=== PATIENT | female | born 1940 | race Caucasian/White ===

== ENCOUNTER → 2017-07-23 | Outpatient (CLI) | payer MEDICARE, OTHER ==
[~2017-07-23] VITALS: Ht 154.9 cm; Wt 61.2 kg
== END | disposition home or self-care (01) ==
LOC: Rad HDHVI 08:21
PROVIDERS: ATTEND Internal Medicine Cardiovascular Disease
DX: I10 Essential (primary) hypertension (principal); E78.00 Pure hypercholesterolemia, unspecified; I42.9 Cardiomyopathy, unspecified; I51.4 Myocarditis, unspecified
CPT/HCPCS: 78452; 93017; 93306; 93926; 96374; A9500

== ENCOUNTER → 2018-05-06 | Outpatient (CLI) | payer MEDICARE, OTHER | END | disposition home or self-care (01) | LOC: Rad HDHVI 12:55 | PROVIDERS: ATTEND Internal Medicine Cardiovascular Disease | DX: I70.0 Atherosclerosis of aorta (principal); E78.5 Hyperlipidemia, unspecified; I12.0 Hypertensive chronic kidney disease with stage 5 chronic kidney disease or end stage renal disease; N18.6 End stage renal disease | CPT/HCPCS: 93306 ==

== ENCOUNTER → 2018-05-15 | Outpatient (CLI) | payer OTHER ==
[~2018-05-15] VITALS: Ht 152.4 cm; Wt 60.3 kg
== END | disposition home or self-care (01) ==
LOC: Rad HDHVI 13:31
PROVIDERS: ATTEND Internal Medicine Cardiovascular Disease
DX: I12.0 Hypertensive chronic kidney disease with stage 5 chronic kidney disease or end stage renal disease (principal); E11.22 Type 2 diabetes mellitus with diabetic chronic kidney disease; N18.6 End stage renal disease; E78.5 Hyperlipidemia, unspecified
CPT/HCPCS: 78452; 93017; 96374; A9500

== ENCOUNTER → 2018-07-08 | Outpatient (CLI) | payer OTHER ==
[~2018-07-08] VITALS: Ht 30.5 cm; Wt 0.5 kg
[~2018-07-08] MED LIST: ALPR0.5T PO; ATO40T PO; CAND8TAB PO; CHOL50007 PO; CLON0.2D6 PO; DEXL60CA3 PO; DOXA2TAB PO; FEBU80TA PO; FURO40TA PO; LISI-646 PO; LISINOPRIL 10 MG TAB ONE; LISINOPRIL 20 MG TAB PO ONE; LOTE0.5S EACHEYE; cloNIDine HCL 0.1 MG TAB ONE; cloNIDine HCL 0.1 MG TAB PO ONE
[2018-07-08 13:00] VITALS: BP 212/79
[2018-07-08 15:20] VITALS: BP 169/65
== END | disposition home or self-care (01) ==
LOC: Rad HDHVI 13:05
PROVIDERS: ATTEND Internal Medicine
DX: M79.606 Pain in leg, unspecified (principal); I12.9 Hypertensive chronic kidney disease with stage 1 through stage 4 chronic kidney disease, or unspecified chronic kidney disease; N18.9 Chronic kidney disease, unspecified
CPT/HCPCS: 93971; G0463

== ENCOUNTER 2018-07-27 05:33 | Inpatient (IN) | payer OTHER ==
[~2018-07-27] VITALS: Ht 152.4 cm; Wt 67.2 kg
[2018-07-27] MEDS ORDERED: cloNIDine 0.2 mg/24hr 7DAY PATCH TD ONE (06:00)
[2018-07-27] MEDS ORDERED: cloNIDine HCL 0.1 MG TAB PO ONE ×2 (06:15→08:45)
[2018-07-27 06:37] LABS: Basophils # (auto) 0.1 uL; Basophils % (auto) 0.8 % (0.0-2.0); Eosinophils # (auto) 0.4 uL; Eosinophils % (auto) 4.6 % (0.0-7.0); Hemoglobin 11.7 g/dL (12.2-16.2); Lymphocytes # (auto) 1.2 uL; Lymphocytes % (auto) 13.1 % (10.0-50.0); Mean Corpuscular Hemoglobin 30.2 pg (28.0-32.0); Mean Corpuscular Hgb Conc. 33.5 g/dL (32.0-36.0); Mean Corpuscular Volume 90.1 fL (80.0-100.0); Monocytes # (auto) 0.6 uL; Monocytes % (auto) 6.8 % (0.0-12.0); Neutrophils # (auto) 6.9 uL; Neutrophils % (auto) 74.7 % (37.0-80.0); Platelet Count (auto) 215 10^3/uL (140-450); Red Blood Cells 3.89 10^6/uL (4.0-5.20); White Blood Cell 9.3 10^3/uL (4.4-10.8)
[2018-07-27 06:55] LABS: INR 0.96 (0.9-1.15); Partial Thromboplastin Time 24.7 sec (23.78-33.04); Prothrombin Time 10.3 sec (9.27-12.13)
[2018-07-27 06:57] LABS: Albumin 2.8 g/dL (3.4-5.0); Bilirubin, Total 0.2 mg/dL (0.2-1.0); Calcium 8.8 mg/dL (8.5-10.1); Magnesium 1.7 mg/dL (1.6-2.6); Potassium 3.6 mmol/L (3.5-5.1); Total Protein 5.9 g/dL (6.4-8.2)
[2018-07-27] MEDS ORDERED: SODIUM CHLORIDE 0.9% 1,000 ML IV ONE (08:17)
[2018-07-27] MEDS ORDERED: PROMETHAZINE HCL 25 MG/ML 1ML IV PRN (08:30)
[2018-07-27] MEDS ORDERED: MORPHINE SULFATE 4 MG/ML SYR/VIAL IV ONE (08:30)
[2018-07-27] MEDS ORDERED: ACETAMINOPHEN 500 MG TAB PO ONE (08:45)
[2018-07-27] MEDS ORDERED: LABETALOL HCL 5 MG/ML ML 20ML VIAL IV ONE (08:45)
[2018-07-27 09:03] LABS: Urine Bacteria FEW /hpf (None Seen); Urine Blood TRACE /uL (Negative); Urine Specific Gravity 1.004 (1.001-1.035); Urine WBC <1 /hpf (0 - 5)
[2018-07-27] MEDS ORDERED: hydrALAZINE HCL 20 MG/ML VL IV ONE (10:15)
[2018-07-27] MEDS ORDERED: NITROGLYCERIN 0.4 MG SL TAB SL PRN (11:00)
[2018-07-27] MEDS ORDERED: SODIUM CHLORIDE 0.9% 1,000 ML IV SCH (11:00)
[2018-07-27] MEDS ORDERED: OXYCODONE W/ ACETAMINOPHEN 5/325MG TABLET PO PRN (11:00)
[2018-07-27] MEDS ORDERED: MORPHINE SULF INJ 2 MG/ML SYRINGE 1ML IV PRN (11:00)
[2018-07-27] MEDS ORDERED: ISOSORBIDE DINITRATE 10 MG TAB PO SCH ×2 (12:00→18:00)
[2018-07-27] MEDS ORDERED: cloNIDine HCL 0.1 MG TAB PO PRN (13:30)
[2018-07-27] MEDS ORDERED: SODIUM CHLORIDE 0.9% 500 ML IV ONE (13:45)
[2018-07-27] MEDS ORDERED: cloNIDine HCL 0.1 MG TAB PO SCH (14:00)
[2018-07-27] MEDS ORDERED: hydrALAZINE HCL 25 MG TAB PO SCH ×3 (14:00)
[2018-07-27] MEDS ORDERED: FUROSEMIDE 100 MG/10ML VIAL IV ONE (14:00)
[2018-07-27] MEDS: ISOSORBIDE DINITRATE 10 MG TAB PO SCH (17:37)
[2018-07-27 21:40] VITALS: BP 122/73
[2018-07-27] MEDS: hydrALAZINE HCL 25 MG TAB PO SCH (21:57)
[2018-07-27] MEDS: ATORVASTATIN 20 MG TAB PO SCH (21:57)
[2018-07-27 22:00] VITALS: BP 122/73
[2018-07-28] VITALS (7 sets, daily range): BP systolic 91–159; BP diastolic 51–76
[2018-07-28] MEDS ORDERED: FEBU80TA PO (00:14)
[2018-07-28] MEDS ORDERED: DOXA2TAB PO (00:14)
[2018-07-28] MEDS ORDERED: CHOL50007 PO (00:14)
[2018-07-28] MEDS ORDERED: CLON0.2D6 PO (00:14)
[2018-07-28] MEDS ORDERED: LOTE0.5S EACHEYE (00:14)
[2018-07-28] MEDS ORDERED: FURO40TA PO (00:14)
[2018-07-28] MEDS ORDERED: LISI-646 PO (00:14)
[2018-07-28] MEDS ORDERED: ATO40T PO (00:14)
[2018-07-28] MEDS ORDERED: ALPR0.5T PO (00:14)
[2018-07-28] MEDS ORDERED: DEXL60CA3 PO (00:14)
[2018-07-28] MEDS ORDERED: CAND8TAB PO (00:14)
[2018-07-28 05:46] LABS: Basophils # (auto) 0 uL; Basophils % (auto) 0.5 % (0.0-2.0); Eosinophils # (auto) 0.4 uL; Eosinophils % (auto) 4.2 % (0.0-7.0); Hematocrit 33.8 % (36.0-46.0); Hemoglobin 11.3 g/dL (12.2-16.2); Lymphocytes # (auto) 1.1 uL; Lymphocytes % (auto) 11.4 % (10.0-50.0); Mean Corpuscular Hemoglobin 30.6 pg (28.0-32.0); Mean Corpuscular Hgb Conc. 33.5 g/dL (32.0-36.0); Mean Corpuscular Volume 91.4 fL (80.0-100.0); Monocytes # (auto) 0.6 uL; Monocytes % (auto) 6.1 % (0.0-12.0); Neutrophils # (auto) 7.7 uL; Neutrophils % (auto) 77.8 % (37.0-80.0); Nucleated Red Blood Cells % 0.1 %; Platelet Count (auto) 198 10^3/uL (140-450); Red Cell Distribution Width 13.1 % (11.8-14.3); White Blood Cell 9.9 10^3/uL (4.4-10.8)
[2018-07-28] MEDS: hydrALAZINE HCL 25 MG TAB PO SCH ×3 (06:00→22:00)
[2018-07-28] MEDS: ISOSORBIDE DINITRATE 10 MG TAB PO SCH ×3 (06:00→17:26)
[2018-07-28] MEDS ORDERED: LOSARTAN POTASSIUM 50 MG TAB PO SCH (10:00)
[2018-07-28] MEDS: PANTOPRAZOLE 40 MG TAB PO SCH (10:00)
[2018-07-28] MEDS: LOSARTAN POTASSIUM 50 MG TAB PO SCH (10:24)
[2018-07-28] MEDS: ALLOPURINOL 100 MG TAB PO SCH (10:24)
[2018-07-28] MEDS ORDERED: FUROSEMIDE 100 MG/10ML VIAL IV STA (10:35)
[2018-07-28] MEDS: PERITONEAL DIALYSIS 2.5% IP SCH ×3 (12:15→17:26)
[2018-07-28] MEDS ORDERED: BUMETANIDE (0.25MG/ML) 4 ML VIAL IV ONE (15:30)
[2018-07-28] MEDS ORDERED: PANTOPRAZOLE 40 MG TAB PO ONE (20:30)
[2018-07-28] MEDS: ATORVASTATIN 20 MG TAB PO SCH (22:00)
[2018-07-28] MEDS: DOCUSATE SOD 100 MG CAP PO SCH (22:00)
[2018-07-29] MEDS: PERITONEAL DIALYSIS 2.5% IP SCH ×2 (03:00)
[2018-07-29 05:00] VITALS: BP 186/72
[2018-07-29] MEDS: hydrALAZINE HCL 25 MG TAB PO SCH ×3 (06:14→21:52)
[2018-07-29] MEDS: ISOSORBIDE DINITRATE 10 MG TAB PO SCH ×3 (06:14→18:00)
[2018-07-29 06:27] LABS: Calcium 8.2 mg/dL (8.5-10.1); Potassium 3.4 mmol/L (3.5-5.1)
[2018-07-29 09:00] VITALS: BP 126/65
[2018-07-29] MEDS ORDERED: POTASSIUM CHL 20 Meq TABLET PO ONE (09:45)
[2018-07-29] MEDS: ALLOPURINOL 100 MG TAB PO SCH (10:00)
[2018-07-29] MEDS: POLYETHYLENE GLYCOL 17 GM PWDR PO SCH (10:00)
[2018-07-29] MEDS: DOCUSATE SOD 100 MG CAP PO SCH ×2 (10:00→21:12)
[2018-07-29] MEDS: LOSARTAN POTASSIUM 50 MG TAB PO SCH (10:00)
[2018-07-29] MEDS: PANTOPRAZOLE 40 MG TAB PO SCH (10:00)
[2018-07-29] MEDS ORDERED: DEXILANT 60MG PO SCH (10:00)
[2018-07-29 13:00] VITALS: BP 156/67
[2018-07-29] MEDS ORDERED: cloNIDine HCL 0.1 MG TAB PO ONE (14:45)
[2018-07-29] MEDS ORDERED: ceFAZolin 1GM/50ML 50 ML IV ONE (14:47)
[2018-07-29] MEDS ORDERED: LIDOCAINE 2%HCL (LOCAL ANESTH.) INJ 10ml MDV ONE (16:09)
[2018-07-29] MEDS ORDERED: fentaNYL CITRATE 100 MCG/2 ML VL ONE (16:23)
[2018-07-29] MEDS ORDERED: MIDAZOLAM HCL 1MG/1ML-2 ML VIAL ONE ×2 (16:25→16:26)
[2018-07-29] MEDS ORDERED: VANCOMYCIN HCL 1000 MG VL ONE (16:32)
[2018-07-29] MEDS ORDERED: VANCOMYCIN 1GM/250ML 250 ML IV ONE (16:32)
[2018-07-29] MEDS ORDERED: hydrALAZINE HCL 20 MG/ML VL ONE (16:34)
[2018-07-29] MEDS ORDERED: IODIXANOL 320MG/ML 100ML BTL IV ONE (17:19)
[2018-07-29] MEDS ORDERED: LIDOCAINE 2% (LOCAL ANESTH.) PF 5ml SDV ONE (17:22)
[2018-07-29] MEDS ORDERED: HEPARIN SODIUM (PORCINE) 5000 UNITS/ML 1ML VIAL ONE (18:03)
[2018-07-29 20:00] VITALS: BP 149/74
[2018-07-29] MEDS: ATORVASTATIN 20 MG TAB PO SCH (21:52)
[2018-07-29 22:00] VITALS: BP 149/74
[2018-07-30] VITALS (8 sets, daily range): BP systolic 131–191; BP diastolic 62–84
[2018-07-30] MEDS: VANCOMYCIN 1GM/250ML 250 ML IV SCH ×2 (05:26→18:40)
[2018-07-30] MEDS: ISOSORBIDE DINITRATE 10 MG TAB PO SCH ×3 (05:27→18:56)
[2018-07-30] MEDS: hydrALAZINE HCL 25 MG TAB PO SCH ×3 (05:27→21:54)
[2018-07-30] MEDS ORDERED: SODIUM CHL 0.9% 1000 ML BAG XX ONE (08:15)
[2018-07-30] MEDS: LOSARTAN POTASSIUM 50 MG TAB PO SCH (10:00)
[2018-07-30] MEDS: ALLOPURINOL 100 MG TAB PO SCH (10:00)
[2018-07-30] MEDS: DOCUSATE SOD 100 MG CAP PO SCH ×2 (10:23→21:54)
[2018-07-30] MEDS: PANTOPRAZOLE 40 MG TAB PO SCH (10:23)
[2018-07-30] MEDS: POLYETHYLENE GLYCOL 17 GM PWDR PO SCH (10:24)
[2018-07-30] MEDS: ATORVASTATIN 20 MG TAB PO SCH (21:54)
[2018-07-31] VITALS (7 sets, daily range): BP systolic 130–166; BP diastolic 63–76
[2018-07-31] MEDS: ISOSORBIDE DINITRATE 10 MG TAB PO SCH ×2 (06:20→12:00)
[2018-07-31] MEDS: hydrALAZINE HCL 25 MG TAB PO SCH ×2 (06:20→14:00)
[2018-07-31 07:50] LABS: Calcium 7.7 mg/dL (8.5-10.1)
[2018-07-31] MEDS ORDERED: SODIUM CHL 0.9% 1000 ML BAG XX ONE (08:45)
[2018-07-31] MEDS ORDERED: Pro-Stat SF 30ml Vanilla GT SCH (10:00)
[2018-07-31] MEDS: PANTOPRAZOLE 40 MG TAB PO SCH (11:03)
[2018-07-31] MEDS: DOCUSATE SOD 100 MG CAP PO SCH (11:03)
[2018-07-31] MEDS: POLYETHYLENE GLYCOL 17 GM PWDR PO SCH (11:04)
[2018-07-31] MEDS: LOSARTAN POTASSIUM 50 MG TAB PO SCH (11:04)
[2018-07-31] MEDS: ALLOPURINOL 100 MG TAB PO SCH (11:04)
== END 2018-07-31 18:13 | disposition home or self-care (01) | DRG 907 ==
LOC: ER 05:33 → TELE 05:34 → TELE-EAST 22:11
PROVIDERS: ADMIT Internal Medicine Cardiovascular Disease; ATTEND Internal Medicine Cardiovascular Disease
PROC: 02H63JZ Insertion of Pacemaker Lead into Right Atrium, Percutaneous Approach (ICD-10-PCS; principal; 2018-07-29)
PROC: 0JH606Z Insertion of Pacemaker, Dual Chamber into Chest Subcutaneous Tissue and Fascia, Open Approach (ICD-10-PCS; 2018-07-29)
PROC: 02HK3JZ Insertion of Pacemaker Lead into Right Ventricle, Percutaneous Approach (ICD-10-PCS; 2018-07-29)
PROC: 5A1D70Z Performance of Urinary Filtration, Intermittent, Less than 6 Hours Per Day (ICD-10-PCS; 2018-07-30)
PROC: 5A1D70Z Performance of Urinary Filtration, Intermittent, Less than 6 Hours Per Day (ICD-10-PCS; 2018-07-31)
DX: T85.691A Other mechanical complication of intraperitoneal dialysis catheter, initial encounter (principal); I50.33 Acute on chronic diastolic (congestive) heart failure; N18.6 End stage renal disease; I13.2 Hypertensive heart and chronic kidney disease with heart failure and with stage 5 chronic kidney disease, or end stage renal disease; E44.0 Moderate protein-calorie malnutrition; I16.1 Hypertensive emergency; N17.9 Acute kidney failure, unspecified; D64.9 Anemia, unspecified; E03.9 Hypothyroidism, unspecified; I49.5 Sick sinus syndrome; M10.9 Gout, unspecified; M19.90 Unspecified osteoarthritis, unspecified site; Y81.2 Prosthetic and other implants, materials and accessory general- and plastic-surgery devices associated with adverse incidents; Z95.0 Presence of cardiac pacemaker; Z88.8 Allergy status to other drugs, medicaments and biological substances; Z88.5 Allergy status to narcotic agent; Y92.89 Other specified places as the place of occurrence of the external cause; Z99.2 Dependence on renal dialysis; Z79.899 Other long term (current) drug therapy; Z68.28 Body mass index [BMI] 28.0-28.9, adult
CPT/HCPCS: 33208; 36415; 70450; 71045; 74176; 76937; 80048; 80053; 81001; 82010; 83735; 83880; 84100; 84443; 84484; 85025; 85379; 85610; 85730; 87081; 90935; 93005; 94761; 99152; A6257; C1785; J0690; J1642; J2001; J2250; Q9967

== ENCOUNTER → 2019-05-21 | Outpatient (CLI) | payer OTHER ==
[~2019-05-21] VITALS: Ht 152.4 cm; Wt 61.7 kg
[~2019-05-21] MED LIST changes: +ADENOSINE 52 MG in GIVE UN-DILUTED 0 ML IV ONE; -LISINOPRIL 10 MG TAB ONE; -LISINOPRIL 20 MG TAB PO ONE; -cloNIDine HCL 0.1 MG TAB ONE; -cloNIDine HCL 0.1 MG TAB PO ONE
== END | disposition home or self-care (01) ==
LOC: Rad HDHVI 12:39
PROVIDERS: ATTEND Internal Medicine Cardiovascular Disease
DX: I12.0 Hypertensive chronic kidney disease with stage 5 chronic kidney disease or end stage renal disease (principal); N18.6 End stage renal disease; L03.115 Cellulitis of right lower limb; I73.9 Peripheral vascular disease, unspecified; E78.00 Pure hypercholesterolemia, unspecified; N28.9 Disorder of kidney and ureter, unspecified; Z99.2 Dependence on renal dialysis
CPT/HCPCS: 78452; 93017; 96374; A9500; J0153

== ENCOUNTER → 2019-11-02 | Outpatient (CLI) | payer OTHER ==
[~2019-11-02] MED LIST changes: -ADENOSINE 52 MG in GIVE UN-DILUTED 0 ML IV ONE; +FURO1TAB31 PO; -FURO40TA PO
== END | disposition home or self-care (01) ==
LOC: Rad HDHVI 13:56
PROVIDERS: ATTEND Internal Medicine Cardiovascular Disease
DX: S32.19XA Other fracture of sacrum, initial encounter for closed fracture (principal); M16.11 Unilateral primary osteoarthritis, right hip; M11.251 Other chondrocalcinosis, right hip; K57.30 Diverticulosis of large intestine without perforation or abscess without bleeding; M25.751 Osteophyte, right hip; I11.0 Hypertensive heart disease with heart failure; I50.9 Heart failure, unspecified; X58.XXXA Exposure to other specified factors, initial encounter; Y93.89 Activity, other specified; Y92.89 Other specified places as the place of occurrence of the external cause; Y99.8 Other external cause status
CPT/HCPCS: 72131; 73700

== ENCOUNTER 2020-06-07 14:38 | Inpatient (IN) | payer OTHER ==
[~2020-06-07] VITALS: Ht 152.4 cm; Wt 65.4 kg
[2020-06-07] MEDS ORDERED: SODIUM CHLORIDE 0.9% 500 ML IV ONE (15:47)
[2020-06-07] MEDS ORDERED: SODIUM CHLORIDE 0.9% 1,000 ML IV ONE ×3 (16:00→17:45)
[2020-06-07 16:45] LABS: Basophils # (auto) 0 10 ^3/uL (0-0.2); Basophils % (auto) 0.1 % (0.0-2.0); Eosinophils # (auto) 0.1 10 ^3/uL (0-0.8); Eosinophils % (auto) 0.3 % (0.0-7.0); Hematocrit 32.6 % (36.0-46.0); Hemoglobin 10.5 g/dL (12.2-16.2); Lymphocytes # (auto) 0.6 10 ^3/uL (0.4-5.4); Lymphocytes % (auto) 3.4 % (10.0-50.0); Mean Corpuscular Hemoglobin 29.5 pg (28.0-32.0); Mean Corpuscular Hgb Conc. 32.1 g/dL (32.0-36.0); Mean Corpuscular Volume 91.7 fL (80.0-100.0); Monocytes # (auto) 0.9 10 ^3/uL (0-1.3); Monocytes % (auto) 5.3 % (0.0-12.0); Neutrophils # (auto) 16.4 10 ^3/uL (1.6-8.6); Neutrophils % (auto) 90.9 % (37.0-80.0); Nucleated Red Blood Cells % 0.2 %; Platelet Count (auto) 207 10^3/uL (140-450); Red Blood Cells 3.55 10^6/uL (4.0-5.20); Red Cell Distribution Width 13.4 % (11.8-14.3); White Blood Cell 18.1 10^3/uL (4.4-10.8)
[2020-06-07 17:03] LABS: Albumin 1.4 g/dL (3.4-5.0); BUN/Creatinine Ratio 7.5; Calcium 7.1 mg/dL (8.5-10.1)
[2020-06-07 17:08] LABS: Bilirubin, Total 0.5 mg/dL (0.2-1.0); Total Protein 4.7 g/dL (6.4-8.2)
[2020-06-07] MEDS ORDERED: PIPERACILLIN-TAZOB 3.375GM 100 ML IV ONE (17:15)
[2020-06-07 17:20] LABS: Magnesium 0.9 mg/dL (1.6-2.6); Potassium 2.7 mmol/L (3.5-5.1)
[2020-06-07] MEDS ORDERED: POTASSIUM CHL 20MEQ/100ML 100 ML IV ONE ×2 (17:30→18:30)
[2020-06-07] MEDS ORDERED: MAGNESIUM SULFATE 1GM/100ML 100 ML IV STA (18:16)
[2020-06-07] MEDS ORDERED: LACTATED RINGER'S 1,000 ML IV ONE (18:30)
[2020-06-07] MEDS ORDERED: MORPHINE SULF INJ 2 MG/ML SYRINGE 1ML IV PRN ×3 (18:30→23:15)
[2020-06-07] MEDS ORDERED: NITROGLYCERIN 0.4 MG SL TAB SL PRN ×2 (18:30→23:15)
[2020-06-07] MEDS ORDERED: FUROSEMIDE 20 MG/2 ML VIAL IV ONE (19:30)
[2020-06-07 20:40] VITALS: BP 122/70
--- NOTE | 2020-06-07 20:40 | NUR ---
Telemetry admit from ER SOM HERMAN admitted to Telemetry unit. Patient oriented to SRIDEVI LOPEZ, primary RN, unit, room, bed, and unit policies regarding patient care and visiting hours. Patient now on continuous telemetry monitoring, tele box 7 and telemetry reading on arrival to unit is sinus rthythm. Patient placed on bedside oxygen 2l, weighed by bedscale and encouraged to call if they need something. All questions and concerns addressed, patient verbalized understanding. Note:
[2020-06-07] MEDS: MAGNESIUM SULFATE 1GM/100ML 100 ML IV SCH (21:28)
--- NOTE | 2020-06-07 21:58 | NUR ---
med held lasix 20 mg held because pt normal blood pressure run low
[2020-06-07 22:53] VITALS: BP 122/70
[2020-06-07] MEDS ORDERED: MORPHINE SULFATE 4 MG/ML SYR/VIAL IV PRN (23:15)
[2020-06-07] MEDS ORDERED: cloNIDine HCL 0.1 MG TAB PO PRN (23:15)
[2020-06-07] MEDS ORDERED: HYDROcodone-ACET 5/325MG TAB PO PRN (23:15)
[2020-06-07] MEDS ORDERED: MIDODRINE HCL 10 MG TAB PO ONE (23:15)
[2020-06-07] MEDS ORDERED: LORazepam 2MG/ML-1ML VIAL IV PRN (23:15)
[2020-06-07] MEDS ORDERED: ALUM & MAG HYDROX-SIMETH LIQ(MAALOX) 30 ML PO PRN (23:15)
[2020-06-07] MEDS ORDERED: VANCOMYCIN PER PHARMACY 1,000 MG IV SCH (23:15)
[2020-06-07] MEDS ORDERED: ONDANSETRON HCL 4 MG/2 ML VIAL IV PRN (23:15)
[2020-06-07] MEDS ORDERED: LORazepam 0.5 MG TAB PO PRN (23:15)
[2020-06-07] MEDS ORDERED: DOCUSATE SOD 100 MG CAP PO PRN (23:15)
[2020-06-07] MEDS ORDERED: ACETAMINOPHEN 325 MG TAB PO PRN ×2 (23:15)
[2020-06-07] MEDS: SOD CHL 0.9%/ KCL 40MEQ 1,000 ML IV SCH (23:23)
[2020-06-07] MEDS ORDERED: VANCOMYCIN 1GM/250ML 250 ML IV ONE (23:45)
[2020-06-08] MEDS ORDERED: PIPERACILLIN-TAZOB 3.375GM 3.375 GM in D5W 5% 100 ML IV SCH ×2
[2020-06-08] MEDS: MAGNESIUM SULFATE 1GM/100ML 100 ML IV SCH ×3 (00:42→05:01)
[2020-06-08] MEDS: HYDROCORTISONE SOD SUCC 100 MG/2ML INJ VIAL IV SCH ×2 (01:29→05:46)
[2020-06-08] MEDS ORDERED: MAGNESIUM SULFATE 1GM/100ML 200 ML IV ONE (02:58)
[2020-06-08] MEDS: SOD CHL 0.9%/ KCL 40MEQ 1,000 ML IV SCH (04:30)
[2020-06-08 05:35] VITALS: BP 115/62
[2020-06-08] MEDS: MIDODRINE HCL 10 MG TAB PO SCH ×3 (05:46→18:00)
[2020-06-08] MEDS: FUROSEMIDE 20 MG/2 ML VIAL IV SCH ×2 (05:50→18:00)
--- NOTE | 2020-06-08 05:50 | NUR ---
med held lasix 20 mg held because pt normal blood pressure run low and potassium was 2.7
[2020-06-08 06:00] LABS: Basophils # (auto) 0 10 ^3/uL (0-0.2); Eosinophils # (auto) 0 10 ^3/uL (0-0.8); Eosinophils % (auto) 0.1 % (0.0-7.0); Hematocrit 30.2 % (36.0-46.0); Lymphocytes # (auto) 0.4 10 ^3/uL (0.4-5.4); Lymphocytes % (auto) 2.5 % (10.0-50.0); Mean Corpuscular Hemoglobin 30.2 pg (28.0-32.0); Mean Corpuscular Volume 91.3 fL (80.0-100.0); Monocytes # (auto) 0.1 10 ^3/uL (0-1.3); Monocytes % (auto) 0.9 % (0.0-12.0); Neutrophils # (auto) 13.6 10 ^3/uL (1.6-8.6); Neutrophils % (auto) 96.5 % (37.0-80.0); Platelet Count (auto) 192 10^3/uL (140-450); Red Blood Cells 3.31 10^6/uL (4.0-5.20); Red Cell Distribution Width 13.5 % (11.8-14.3); White Blood Cell 14.1 10^3/uL (4.4-10.8)
[2020-06-08 06:15] LABS: INR 1.06 (0.9-1.15); Partial Thromboplastin Time 34.4 sec (23.64-32.05)
[2020-06-08 06:21] LABS: Lactic Acid w/Reflex 2.1 mmol/L (0.4-2.0)
[2020-06-08 06:23] LABS: Potassium 3.7 mmol/L (3.5-5.1)
[2020-06-08 06:39] LABS: Albumin 1.3 g/dL (3.4-5.0); BUN/Creatinine Ratio 7.5; Bilirubin, Total 0.5 mg/dL (0.2-1.0); Calcium 7.9 mg/dL (8.5-10.1); Magnesium 2.6 mg/dL (1.6-2.6); Phosphorus 5.7 mg/dL (2.5-4.90); Total Protein 4.2 g/dL (6.4-8.2)
[2020-06-08] MEDS: PIPERACILLIN-TAZOB 2.25GM 50 ML IV SCH ×3 (06:50→22:21)
--- NOTE | 2020-06-08 07:45 | NUR ---
Respiratory note: PT IS RESTING COMFORTABLY. NO RESPIRATORY DISTRESS NOTED. SPO2 98% ON RA, HR 95, RR 18, BS CLEAR/DIMINISHED BILATERALLY. NO FURTHER RESPIRATORY INTERVENTIONS INDICATED. CHARTING COMPLETE FROM OUTSIDE OF PT ROOM DUE TO COVID-19 PRECAUTIONS/PROTOCOL.
[2020-06-08] MEDS: ALLOPURINOL 100 MG TAB PO SCH (08:53)
[2020-06-08] MEDS: PANTOPRAZOLE 40 MG TAB PO SCH (08:53)
[2020-06-08] MEDS: POTASSIUM CHL 20 Meq TABLET PO SCH (08:53)
[2020-06-08] MEDS: ENOXAPARIN SOD 30 MG/0.3 ML SYRINGE SC SCH (08:54)
[2020-06-08 09:00] VITALS: BP 112/57
[2020-06-08] MEDS ORDERED: FAMOTIDINE (10MG/ML) 2ML VL IV SCH (10:00)
[2020-06-08] MEDS ORDERED: LISINOPRIL 10 MG TAB PO SCH (10:00)
[2020-06-08] MEDS ORDERED: DOXAZOSIN MESYL 2 MG TAB PO SCH (10:00)
[2020-06-08 12:06] LABS: CRP High Sensitivity 5.77 mg/dL (< 0.3)
[2020-06-08 13:00] VITALS: BP 117/68
[2020-06-08] MEDS: DOXYCYCLINE 100MG/250ML 250 ML IV SCH (13:00)
[2020-06-08] MEDS ORDERED: ACETAMINOPHEN 325 MG TAB PO PRN (13:15)
[2020-06-08 17:00] VITALS: BP 105/66
--- NOTE | 2020-06-08 17:50 | NUR ---
PT ARRIVED FROM COVID UNIT VIA HOSPITAL TO ROOM 278 B, PT IS ALERT ORIENTED TO SELF, NAME AND DATE, CONFUSED TO TIME AND PLACE, PT WAS ABLE TO TELL ME WHERE IS HER DIALYSIS CATHETER AT, POINTED AT RT LOWER ABDOMEN, AND ANSWER MY QUESTIONS, REFUSED TO EAT DINNER, SKIN TEAR NOTED RT FOREARM X2, LEFT HAND, SUTURES AT THE LOW BACK AREA, BRUISES NOTED ALL OVER PT BODY, PT WAS STATUS POST FALL AT HOME, FELL OF HER BED, PLUS 1 EDEMA NOTED WITH WEEPING ON BOTH LOWER EXTREMITIES, FALL RISK PRECAUTIONS, CALL LIGHT WITHIN REACH, NEXT TO NURSING STATION
--- NOTE | 2020-06-08 18:29 | NUR ---
Patient transferred to room 278b along with all personal belongings, via gurney, no distress noted at time of departure; endorsed care to FRANSISCA Devi.
--- NOTE | 2020-06-08 18:35 | NUR ---
PATIENT'S SON BORIS CALLED TO GET SOME UPDATE, INFORM ME THAT HIS MOM DIALYSIS AT BED TIME
--- NOTE | 2020-06-08 18:49 | NUR ---
OUT BY JACQUARD LOOM FIXER FOR HEAD CT VIA HOSPITAL BED
--- NOTE | 2020-06-08 19:15 | NUR ---
Opening Shift Note Assumed care of patient, awake, alert and oriented x2, on 3L of oxygen via NC with even and unlabored respirations, no S/S of distress/SOB or pain. Patient able to turn in bed independently, bed in lowest locked position, side rails up x2, and call light within reach. Instructed on POC and to call for assist PRN, will continue to monitor for changes Q1hr and PRN.
[2020-06-08 22:00] VITALS: BP 103/59
[2020-06-08] MEDS: ATORVASTATIN 20 MG TAB PO SCH (22:21)
[2020-06-09] MEDS: DOXYCYCLINE 100MG/250ML 250 ML IV SCH ×2 (01:13→12:35)
[2020-06-09 05:25] VITALS: BP 104/81
[2020-06-09] MEDS: FUROSEMIDE 20 MG/2 ML VIAL IV SCH (06:00)
[2020-06-09] MEDS: PIPERACILLIN-TAZOB 2.25GM 50 ML IV SCH ×3 (06:19→23:03)
[2020-06-09] MEDS: MIDODRINE HCL 10 MG TAB PO SCH ×3 (06:19→17:34)
--- NOTE | 2020-06-09 07:45 | NUR ---
MORNING LAB DRAW RECEIVED CALL FROM LAB STATING THE RECENT LAB DRAW FROM PATIENT'S MIDLINE IS POSSIBLY DILUTED D/T DRASTICALLY DIFFERENT LAB VALUES. LABS REDRAWN AFTER MIDLINE FLUSHED AND 10CC BLOOD WASTED. PATIENT TOLERATED WELL.
--- NOTE | 2020-06-09 08:00 | NUR ---
OPENING SHIFT NOTE ASSUMED CARE OF PATIENT AWAKE AND ALERT X2. NO S/S OF DISTRESS NOTED OR COMPLAINTS OF PAIN. PATIENT UPDATED ON POC FOR THE DAY AND ALL QUESTIONS ANSWERED. BED IS IN LOWEST, LOCKED POSITION WITH SIDE RAILS UP X2, CALL LIGHT WITHIN REACH, AND BED ALARM ON FOR SAFETY.
[2020-06-09 08:25] LABS: Basophils # (auto) 0 10 ^3/uL (0-0.2); Basophils % (auto) 0.2 % (0.0-2.0); Eosinophils # (auto) 0 10 ^3/uL (0-0.8); Eosinophils % (auto) 0.3 % (0.0-7.0); Hematocrit 27.6 % (36.0-46.0); Hemoglobin 9.1 g/dL (12.2-16.2); Lymphocytes # (auto) 1.2 10 ^3/uL (0.4-5.4); Lymphocytes % (auto) 9.1 % (10.0-50.0); Mean Corpuscular Hemoglobin 29.9 pg (28.0-32.0); Mean Corpuscular Hgb Conc. 32.9 g/dL (32.0-36.0); Monocytes # (auto) 0.9 10 ^3/uL (0-1.3); Monocytes % (auto) 6.4 % (0.0-12.0); Neutrophils # (auto) 11.5 10 ^3/uL (1.6-8.6); Nucleated Red Blood Cells % 0.2 %; Platelet Count (auto) 225 10^3/uL (140-450); Red Blood Cells 3.04 10^6/uL (4.0-5.20); Red Cell Distribution Width 13.6 % (11.8-14.3); White Blood Cell 13.6 10^3/uL (4.4-10.8)
[2020-06-09 08:38] VITALS: BP 105/63
[2020-06-09 09:00] LABS: Anion Gap 13 (5-15); BUN/Creatinine Ratio 8.1; Blood Urea Nitrogen 53 mg/dL (7-18); Calcium 8.6 mg/dL (8.5-10.1); Carbon Dioxide 19 mmol/L (21-32); Chloride 94 mmol/L (98-107); GFR African American 8 mL/min; GFR Non-African American 7 mL/min; Glucose 80 mg/dL (74-106); Potassium 4.4 mmol/L (3.5-5.1); Sodium 126 mmol/L (136-145)
[2020-06-09] MEDS: PANTOPRAZOLE 40 MG TAB PO SCH (09:55)
[2020-06-09] MEDS: ENOXAPARIN SOD 30 MG/0.3 ML SYRINGE SC SCH (09:56)
[2020-06-09] MEDS: POTASSIUM CHL 20 Meq TABLET PO SCH (09:56)
[2020-06-09] MEDS: ALLOPURINOL 100 MG TAB PO SCH (09:56)
--- NOTE | 2020-06-09 11:56 | NUR ---
AT BEDSIDE DR MITCHELL AT BEDSIDE ROUNDING ON PATIENT.
[2020-06-09] MEDS ORDERED: PERITONEAL DIALYSIS 1.5% SOLN 2,000 ML IP SCH (12:00)
[2020-06-09] MEDS: CALCIUM ACETATE 667 MG CAP PO SCH ×2 (12:41→17:34)
[2020-06-09] MEDS: EPOETIN ALFA 10,000 UNIT/1 ML VIAL SC SCH (12:42)
[2020-06-09 13:00] VITALS: BP 111/65
--- NOTE | 2020-06-09 14:22 | NUR ---
PERITONEAL DIALYSIS PERITONEAL DIALYSIS STARTED. STARTING WEIGHT IS 1700ML.
[2020-06-09 16:30] VITALS: BP 98/60
[2020-06-09] MEDS ORDERED: VANCOMYCIN 500 MG in D5W 5% 100 ML IV ONE (18:00)
--- NOTE | 2020-06-09 19:55 | NUR ---
RECEIVED PATIENT FROM DAY SHIFT RN. PATIENT RESTING IN BED. NO S/S OF DISTRESS NOTED. DENIED PAIN FOR NOW. PERITONEAL DIALYSIS ACCESS SITE DRESSING C/D/I. MULTIPLE WOUNDS NOTED. DRESSINGS ON ALEXANDER AND RIGHT HAND C/D/I, WOUND ON RFA DRY AND OPEN TO AIR, AND INCISION WOUND ON BACK OPEN TO AIR, NO S/S OF INFECTION NOTED. REPOSITIONED PATIENT TO COMFORT. POC INSTRUCTED AND ENCOURAGED PATIENT TO CALL FOR MEDICAL PROFESSIONALS IF NEEDED. BED IN LOWEST POSITION WITH SIDE RAILS UP X 2.CALL LAWRENCE WITHIN REACH. ALARM ON. CONTINUE TO MONITOR FOR CHANGES Q1H AND PRN.
--- NOTE | 2020-06-09 19:55 | NUR ---
RECEIVED PATIENT FROM DAY SHIFT RN. PATIENT RESTING IN BED. NO S/S OF DISTRESS NOTED. DENIED PAIN FOR NOW. PERITONEAL DIALYSIS ACCESS SITE DRESSING C/D/I. MULTIPLE WOUNDS NOTED. DRESSINGS ON ALEXANDER AND RIGHT HAND C/D/I, WOUND ON RFA DRY AND OPEN TO AIR, AND INCISION WOUND ON BACK OPEN TO AIR, NO S/S OF INFECTION NOTED. REPOSITIONED PATIENT TO COMFORT. POC INSTRUCTED AND ENCOURAGED PATIENT TO CALL FOR FOREST PATHOLOGIST IF NEEDED. BED IN LOWEST POSITION WITH SIDE RAILS UP X 2.DONN
--- NOTE | 2020-06-09 20:00 | NUR ---
PERITONEAL DIALYSIS DRAINING OUT NOW. CONTINUE CARE.
[2020-06-09] MEDS: PERITONEAL DIALYSIS 1.5% SOLN 2,000 ML IP SCH (20:20)
--- NOTE | 2020-06-09 20:20 | NUR ---
PERITONEAL DIALYSIS STARTED. STARTING WEIGHT IS 1800ML.
--- NOTE | 2020-06-09 21:10 | NUR ---
REPOSITIONED PATIENT. PATIENT TOLERATED WELL. CONTINUE CARE.
[2020-06-09 22:00] VITALS: BP 94/65
--- NOTE | 2020-06-09 22:58 | NUR ---
PATIENT'S LEFT ARM AND BOTH LOWER LEGS WEEPING, CLEANED PATIENT, TOTAL LINEN AND PATIENT GOWN CHANGED. PILLOWS TO ELEVATED BOTH LEGS AND LEFT ARM. PATIENT TOLERATED WELL. CONTINUE TO MONITOR.
[2020-06-09] MEDS: ATORVASTATIN 20 MG TAB PO SCH (23:03)
--- NOTE | 2020-06-10 01:00 | NUR ---
REPOSITIONED PATIENT. PATIENT TOLERATED WELL. CONTINUE TO MONITOR.
[2020-06-10] MEDS: DOXYCYCLINE 100MG/250ML 250 ML IV SCH ×2 (01:40→12:31)
--- NOTE | 2020-06-10 02:14 | NUR ---
PERITONEAL DIALYSIS DRAINING OUT NOW. CONTINUE CARE.
[2020-06-10] MEDS: PERITONEAL DIALYSIS 1.5% SOLN 2,000 ML IP SCH ×3 (02:20→20:43)
--- NOTE | 2020-06-10 02:30 | NUR ---
TOTAL OUTPUT FROM PD 800ML DURING THIS SHIFT.
--- NOTE | 2020-06-10 02:30 | NUR ---
PERITONEAL DIALYSIS STARTED. STARTING WEIGHT IS 1800ML. TOTAL OUT 2200 ML. CONTINUE TO MONITOR.
--- NOTE | 2020-06-10 03:10 | NUR ---
REPOSITIONED PATIENT. PATIENT TOLERATED WELL. CONTINUE CARE.
[2020-06-10 05:00] VITALS: BP 121/64
--- NOTE | 2020-06-10 05:00 | NUR ---
REPOSITIONED PATIENT. PATIENT TOLERATED WELL. CONTINUE CARE.
[2020-06-10] MEDS: PIPERACILLIN-TAZOB 2.25GM 50 ML IV SCH ×3 (05:52→22:22)
[2020-06-10] MEDS: MIDODRINE HCL 10 MG TAB PO SCH ×3 (05:52→18:47)
--- NOTE | 2020-06-10 06:37 | NUR ---
PATIENT'S LEFT ARM AND BOTH LOWER LEGS WEEPING, CLEANED PATIENT, PARTIAL LINEN CHANGED. PILLOWS TO ELEVATED BOTH LEGS AND LEFT ARM. PATIENT TOLERATED WELL. CONTINUE TO MONITOR.
[2020-06-10 07:12] LABS: Calcium 8.4 mg/dL (8.5-10.1); Potassium 3.3 mmol/L (3.5-5.1)
[2020-06-10 07:14] LABS: BUN/Creatinine Ratio 8.7
--- NOTE | 2020-06-10 07:15 | NUR ---
Opening Shift Note Assumed care of patient, awake, alert and oriented x2, on room air with even and unlabored respirations, no S/S of distress/SOB or pain. Patient able to turn in bed independently, bed in lowest locked position, side rails up x2, and call light within reach. Instructed on POC and to call for assist PRN, will continue to monitor for changes Q1hr and PRN.
[2020-06-10] MEDS ORDERED: PERITONEAL DIALYSIS 2.5% SOLN 2,000 ML IP ONE (08:00)
--- NOTE | 2020-06-10 08:10 | NUR ---
Peritoneal Dialysis order changed Peritoneal Dialysis solution concentration changed per MD orders. PD solution concentration not available at this time. Pharmacy notified, awaiting for solution.
[2020-06-10 08:30] VITALS: BP 142/118
--- NOTE | 2020-06-10 09:20 | NUR ---
Peritoneal Dialysis started Peritoneal Dialysis started 2.5% solution weight 1700 g.
[2020-06-10] MEDS: CALCIUM ACETATE 667 MG CAP PO SCH ×3 (09:46→18:47)
[2020-06-10] MEDS: PANTOPRAZOLE 40 MG TAB PO SCH (09:46)
[2020-06-10] MEDS: POTASSIUM CHL 20 Meq TABLET PO SCH (09:46)
[2020-06-10] MEDS: ALLOPURINOL 100 MG TAB PO SCH (09:46)
[2020-06-10] MEDS: ENOXAPARIN SOD 30 MG/0.3 ML SYRINGE SC SCH (09:47)
[2020-06-10 12:30] VITALS: BP 95/79
--- NOTE | 2020-06-10 13:20 | NUR ---
PD OUTPUT STARTING WEIGHT WAS 1700 ML. TOTAL OUT 3900 ML. CONTINUE TO MONITOR.
--- NOTE | 2020-06-10 13:30 | NUR ---
Second PD held Peritoneal Dialysis held as this time. Soda Fountain Operator paged regarding concerns for previous output amount being greater than 1500 ml. Awaiting call back.
--- NOTE | 2020-06-10 14:00 | NUR ---
Park catheter insertion Patient assessed and determined to be in need of Park catheter. Order obtained from Maria E JANE. Patient educated on catheter and reason for insertion. All questions answered. Park catheter 16 gauge [place] inserted with clean sterile technique after 1 attempt by resource nurse Anne-Marie and one failed attempt by this RN. Patient tolerated well.
--- NOTE | 2020-06-10 15:11 | NUR ---
Skin Pass Operator rounding Per Dr. Kat allen to continue with PD at this time.
--- NOTE | 2020-06-10 15:40 | NUR ---
Peritoneal Dialysis started Peritoneal Dialysis started 1.5% solution weight 1700 g.
[2020-06-10 16:20] LABS: Urine Blood 3+ /uL (Negative)
[2020-06-10 16:26] LABS: Urine Bacteria NONE SEEN /hpf (None Seen); Urine Budding Yeast MODERATE /hpf (None Seen); Urine WBC 4076 /hpf (0 - 5); Urine WBC Clumps PRESENT /hpf (None Seen)
--- NOTE | 2020-06-10 16:30 | NUR ---
paged paged regarding patient having 3 episodes of diarrhea with foul smell during this RN's shift. New orders to collect stool sample for C-Diff. Will carry orders and continue patient care.
[2020-06-10 16:44] VITALS: BP 106/87
--- NOTE | 2020-06-10 19:30 | NUR ---
Closing shift note Patient in bed no s/s of distress noted at this time. NOC nurse endorsed to drain peritoneal dialysis at 1940.
--- NOTE | 2020-06-10 19:40 | NUR ---
RECEIVED PATIENT FROM DAY SHIFT RN. PATIENT RESTING IN BED. NO S/S OF DISTRESS NOTED. DENIED PAIN FOR NOW. PERITONEAL DIALYSIS ACCESS SITE DRESSING C/D/I. STARTED DRAINING PD NOW. MULTIPLE WOUNDS NOTED. DRESSINGS ON ALEXANDER AND RIGHT HAND C/D/I, WOUND ON RFA DRY AND OPEN TO AIR, AND INCISION WOUND ON BACK OPEN TO AIR, NO S/S OF INFECTION NOTED. REPOSITIONED PATIENT TO COMFORT. POC INSTRUCTED AND ENCOURAGED PATIENT TO CALL FOR PROCESS SPECIALIST IF NEEDED. BED IN LOWEST POSITION WITH SIDE RAILS UP X 2.CALL LAWRENCE WITHIN REACH. ALARM ON. CONTINUE TO MONITOR FOR CHANGES Q1H AND PRN.
--- NOTE | 2020-06-10 19:49 | NUR ---
PER MD BLANKENSHIP'S COMMUNICATION ORDER, HELD 7.5% PD FLUID FOR NOW. AND WILL CONTINUE 1.5% PD FLUID LATER. CONTINUE TO MONITOR.
[2020-06-10] MEDS ORDERED: PERITONEAL DIALYSIS IP ONE (20:00)
--- NOTE | 2020-06-10 20:00 | NUR ---
TOTAL PD FLUID DRAINING OUT 1700ML.
--- NOTE | 2020-06-10 20:10 | NUR ---
CALLED PHARMACIST REGARDING TO 1.5 PD SOLUTION NOT AVAILABLE ON THE FLOOR. WILL SEND IT TRICE.
--- NOTE | 2020-06-10 20:37 | NUR ---
RECEIVED PD SOLUTION 1.5% FROM PHARMACY.
--- NOTE | 2020-06-10 20:51 | NUR ---
PERITONEAL DIALYSIS STARTED. STARTING WEIGHT IS 1800ML.
--- NOTE | 2020-06-10 21:25 | NUR ---
REPOSITIONED PATIENT. PATIENT TOLERATED WELL. CONTINUE CARE.
[2020-06-10 22:00] VITALS: BP 105/66
[2020-06-10] MEDS: ATORVASTATIN 20 MG TAB PO SCH (22:21)
--- NOTE | 2020-06-10 23:03 | NUR ---
PATIENT'S BOTH LOWER LEGS WEEPING, CLEANED PATIENT, TOTAL LINEN AND PATIENT GOWN CHANGED. PILLOWS TO ELEVATED LEGS. PATIENT TOLERATED WELL. CONTINUE TO MONITOR.
--- NOTE | 2020-06-11 00:55 | NUR ---
PERITONEAL DIALYSIS DRAINING OUT NOW. CONTINUE CARE.
[2020-06-11] MEDS: DOXYCYCLINE 100MG/250ML 250 ML IV SCH ×2 (01:11→12:29)
--- NOTE | 2020-06-11 01:30 | NUR ---
TOTAL PD DRAINING OUT 2500ML. PATIENT TOLERATED WELL. PER MD BLANKENSHIP, KEEP IT EMPTY UNTIL MORNING, MD WILL COME TO REASSESS PATIENT. CONTINUE TO MONITOR.
--- NOTE | 2020-06-11 03:44 | NUR ---
PATIENT SLEEPING. NO S/S OF DISTRESS NOTED. NAIK CATH IN PLACE DRAINING TO GRAVITY. REPOSITIONED PATIENT. PATIENT TOLERATED WELL. CONTINUE TO MONITOR.
[2020-06-11 05:00] VITALS: BP 101/60
[2020-06-11] MEDS: PIPERACILLIN-TAZOB 2.25GM 50 ML IV SCH ×3 (05:43→21:40)
[2020-06-11] MEDS: MIDODRINE HCL 10 MG TAB PO SCH ×3 (05:44→17:43)
[2020-06-11 07:23] LABS: Calcium 8.5 mg/dL (8.5-10.1); Potassium 3.7 mmol/L (3.5-5.1)
[2020-06-11 07:26] LABS: BUN/Creatinine Ratio 8.4
[2020-06-11 07:28] LABS: Basophils # (auto) 0 10 ^3/uL (0-0.2); Basophils % (auto) 0.1 % (0.0-2.0); Eosinophils # (auto) 0.1 10 ^3/uL (0-0.8); Hematocrit 28.7 % (36.0-46.0); Hemoglobin 9.6 g/dL (12.2-16.2); Lymphocytes # (auto) 1.5 10 ^3/uL (0.4-5.4); Lymphocytes % (auto) 10.5 % (10.0-50.0); Mean Corpuscular Hgb Conc. 33.6 g/dL (32.0-36.0); Mean Corpuscular Volume 89.3 fL (80.0-100.0); Monocytes # (auto) 0.9 10 ^3/uL (0-1.3); Monocytes % (auto) 6.5 % (0.0-12.0); Neutrophils # (auto) 11.3 10 ^3/uL (1.6-8.6); Neutrophils % (auto) 81.9 % (37.0-80.0); Nucleated Red Blood Cells % 0.2 %; Platelet Count (auto) 215 10^3/uL (140-450); Red Blood Cells 3.22 10^6/uL (4.0-5.20); Red Cell Distribution Width 13.4 % (11.8-14.3); White Blood Cell 13.8 10^3/uL (4.4-10.8)
[2020-06-11] MEDS ORDERED: PERITONEAL DIALYSIS 2.5% SOLN 2,000 ML IP ONE (08:30)
[2020-06-11] MEDS: CALCIUM ACETATE 667 MG CAP PO SCH ×3 (08:47→17:43)
[2020-06-11] MEDS: ALLOPURINOL 100 MG TAB PO SCH (08:47)
[2020-06-11] MEDS: PANTOPRAZOLE 40 MG TAB PO SCH (08:47)
[2020-06-11] MEDS: POTASSIUM CHL 20 Meq TABLET PO SCH (08:48)
[2020-06-11] MEDS: ENOXAPARIN SOD 30 MG/0.3 ML SYRINGE SC SCH (08:48)
[2020-06-11] MEDS: EPOETIN ALFA 10,000 UNIT/1 ML VIAL SC SCH (08:50)
[2020-06-11 09:00] VITALS: BP 100/59
[2020-06-11] MEDS: PERITONEAL DIALYSIS 1.5% SOLN 2,000 ML IP SCH ×2 (12:30→17:42)
[2020-06-11 13:00] VITALS: BP 142/78
[2020-06-11] MEDS ORDERED: PERITONEAL DIALYSIS IP ONE ×2 (16:30→21:30)
[2020-06-11 16:52] VITALS: BP 108/47
--- NOTE | 2020-06-11 17:13 | NUR ---
SPOKE TO JOSEPH AT DR. BLANKENSHIP ANSWERING SERVICE FOR PD ORDER CLARIFICATION.
[2020-06-11] MEDS ORDERED: PERITONEAL DIALYSIS 1.5% SOLN 2,000 ML IP ONE (17:30)
--- NOTE | 2020-06-11 17:30 | NUR ---
DR. BLANKENSHIP CLARIFIED ORDER. RFA WOUND CLEANSED AND DRESSING APPLIED WITH THERA-HONEY. PT TOLERATED PROCEDURE WELL.
[2020-06-11] MEDS: ATORVASTATIN 20 MG TAB PO SCH (21:40)
[2020-06-11 22:00] VITALS: BP 83/64
--- NOTE | 2020-06-12 01:00 | NUR ---
DWELL COMPLETE,MANAGER RECRUITING RAINER PAGED BECAUSE 7.5 SOLUTION DID NOT COME WITH TUBING. AND THE TUBING ALREADY HANGING IS ONE UNIT THAT CANNOT BE PULLED APART.
--- NOTE | 2020-06-12 01:25 | NUR ---
2ND PAGE PLACED TO RUG DRY ROOM ATTENDANT VIA PBX.
--- NOTE | 2020-06-12 01:34 | NUR ---
THIRD PAGE TO EDGE GLUE MACHINE TENDER.
[2020-06-12] MEDS: DOXYCYCLINE 100MG/250ML 250 ML IV SCH ×2 (01:39→12:57)
--- NOTE | 2020-06-12 01:47 | NUR ---
FOURTH PAGE TO HOUSE SUP.
--- NOTE | 2020-06-12 01:58 | NUR ---
HOUSE SUP PAGED. LOWELL AWARE OF SITUATION.
--- NOTE | 2020-06-12 02:31 | NUR ---
CALLED [phone] NO ANSWER.
--- NOTE | 2020-06-12 02:31 | NUR ---
BRANCH OPERATIONS COORDINATOR ON MCGUFFEY-ADVISED RN TO CHECK ER AND RADIOLOGY. A VISIT TO ER YIELDED NO TUBING PER TERI WHO STATED THEY DONT HAVE ANY;SILVICULTURE TEACHER SAEED SEARCHED THROUGH NUMEROUS BOXES OF VARIED TUBING;NO PERITONEAL TUBING FOUND. RN ADVISED TO CALL PHARMACY IN AM FOR TUBING.
--- NOTE | 2020-06-12 03:19 | NUR ---
VISUAL CONFIRMATION BY RUDY FRASER RN THAT THE TUBING IS NOT AVAILABLE AND PHARMACY MUST BE CALLED AT 0630.
[2020-06-12] MEDS: PIPERACILLIN-TAZOB 2.25GM 50 ML IV SCH ×3 (05:19→22:36)
[2020-06-12] MEDS: MIDODRINE HCL 10 MG TAB PO SCH ×3 (05:38→17:24)
[2020-06-12 05:57] VITALS: BP 151/85
--- NOTE | 2020-06-12 06:52 | NUR ---
PHARMACY CALLED AND REQUESTED PERITONEAL DIALYSIS TUBING. [facility] IN PHARMACY STATES THEY WILL BRING IT UP.
--- NOTE | 2020-06-12 07:24 | NUR ---
ZERO OUTPUT PER PERITONEAL DIALYSIS;WITH SAME WEIGHT 1800 GMS AT BEGINNING OF DIALYSIS;1800 GMS AT THE END.
[2020-06-12] MEDS: CALCIUM ACETATE 667 MG CAP PO SCH ×3 (08:14→17:24)
[2020-06-12] MEDS: PANTOPRAZOLE 40 MG TAB PO SCH (08:14)
[2020-06-12] MEDS: POTASSIUM CHL 20 Meq TABLET PO SCH (08:14)
[2020-06-12] MEDS: ALLOPURINOL 100 MG TAB PO SCH (08:14)
[2020-06-12] MEDS: ENOXAPARIN SOD 30 MG/0.3 ML SYRINGE SC SCH (08:15)
[2020-06-12 08:39] LABS: Calcium 8.9 mg/dL (8.5-10.1); Potassium 4.2 mmol/L (3.5-5.1)
[2020-06-12 08:42] LABS: BUN/Creatinine Ratio 8.2
[2020-06-12 09:00] VITALS: BP 97/51
--- NOTE | 2020-06-12 11:20 | NUR ---
TELE LEADS AND WIRES CHANGED DUE TO INCREASED ARTIFACT ON MONITOR.
[2020-06-12] MEDS ORDERED: PERITONEAL DIALYSIS IP ONE (11:30)
--- NOTE | 2020-06-12 12:20 | NUR ---
Nutrition Assessment Notes: Please see attached link for complete assessment [employer] Energy needs IBW 45 [id number] kcals (30-35 kcal/kgBW), Est Protein needs: 54-72 gms/day (1.2-1.6gm/kgBW r/t PD). Will continue to monitor and reassess prn. will reassess per dry body wt Addendum: 06/12/20 at [address] Amended: Links added.
--- NOTE | 2020-06-12 12:48 | NUR ---
PER MD BLANKENSHIP 2.5% SOLUTIONS TO BE GIVEN STARTING NOW Q4h--- 1200; 1600 7.5% SOLUTION TO DWELL OVERNIGHT--- 2000
[2020-06-12] MEDS: PERITONEAL DIALYSIS 2.5% SOLN 2,000 ML IP SCH ×2 (12:56→17:24)
[2020-06-12 13:00] VITALS: BP 84/69
[2020-06-12 17:26] VITALS: BP 84/66
--- NOTE | 2020-06-12 19:40 | NUR ---
Started draining for patient peritoneal dialysis. Will continue to monitor.
--- NOTE | 2020-06-12 20:10 | NUR ---
2000 GRAMS OUT. NET OF 200 GRAMS OUT.
--- NOTE | 2020-06-12 20:15 | NUR ---
2100 GRAMS WEIGHT FOR BAG THAT WILL DWELL OVER TONIGHT.
--- NOTE | 2020-06-12 21:17 | NUR ---
SPOKE WITH MD CEJA AND EXPLAINED TO HIM THAT PATIENT OXYGENATION WAS AT 70% AND AFTER ADMINISTRATION OF 5L OXYGEN PATIENT OXYGEN IS AT HIGH 70'S-LOW 80'S. ORDERED TO HAVE ABG DONE AND CALL BACK WHEN RESPIRATORY HAS EVALUATED PATIENT.
[2020-06-12 22:00] VITALS: BP 91/62
[2020-06-12] MEDS: ATORVASTATIN 20 MG TAB PO SCH (22:36)
[2020-06-13] MEDS: DOXYCYCLINE 100MG/250ML 250 ML IV SCH ×2 (01:55→13:31)
[2020-06-13 05:33] VITALS: BP 102/83
[2020-06-13] MEDS: PIPERACILLIN-TAZOB 2.25GM 50 ML IV SCH (06:08)
[2020-06-13] MEDS: MIDODRINE HCL 10 MG TAB PO SCH ×2 (06:09→13:31)
[2020-06-13 07:17] LABS: INR 1.07 (0.9-1.15); Partial Thromboplastin Time 30.4 sec (23.64-32.05)
[2020-06-13 07:25] LABS: Hematocrit 33.2 % (36.0-46.0)
--- NOTE | 2020-06-13 07:25 | NUR ---
2100 grams was the weight when fluid was drained out. Net was 0g out.
--- NOTE | 2020-06-13 07:30 | NUR ---
Opening Note Assumed patient care from NOC RN. Ballistics Expert RN at bedside for transport. Patient shows no signs of distress at this time, will continue to monitor.
--- NOTE | 2020-06-13 07:40 | NUR ---
Patient off unit to cathode builder.
[2020-06-13] MEDS ORDERED: IOHEXOL 350 MG/ML 100ML IJ ONE ×2 (07:46→08:53)
[2020-06-13] MEDS ORDERED: LIDOCAINE 2%HCL (LOCAL ANESTH.) INJ 20ML MDV ONE (07:46)
[2020-06-13 07:57] LABS: BUN/Creatinine Ratio 7.5; Calcium 9.3 mg/dL (8.5-10.1); Potassium 4.2 mmol/L (3.5-5.1)
[2020-06-13] MEDS: CALCIUM ACETATE 667 MG CAP PO SCH ×2 (08:00→13:31)
[2020-06-13] MEDS ORDERED: ANGIOMAX 250 MG VIAL IV ONE (08:12)
[2020-06-13] MEDS ORDERED: MIDAZOLAM HCL 1MG/1ML-2 ML VIAL ONE (08:13)
[2020-06-13] MEDS ORDERED: SODIUM CHL 0.9% 0 ML ONE (08:13)
[2020-06-13] MEDS ORDERED: fentaNYL CITRATE 100 MCG/2 ML VL ONE (08:13)
[2020-06-13] MEDS: PANTOPRAZOLE 40 MG TAB PO SCH (10:00)
[2020-06-13] MEDS: ENOXAPARIN SOD 30 MG/0.3 ML SYRINGE SC SCH (10:00)
[2020-06-13] MEDS: ALLOPURINOL 100 MG TAB PO SCH (10:00)
--- NOTE | 2020-06-13 10:20 | NUR ---
Patient Returned to Unit Patient returned from Condominium Association Manager, no signs of distress at this time, patient is AOx3-4, respirations even and unlabored, BP 112/71.
[2020-06-13] MEDS ORDERED: PERITONEAL DIALYSIS 1.5% SOLN 2,000 ML IP SCH (12:00)
[2020-06-13 13:00] VITALS: BP 95/61
--- NOTE | 2020-06-13 13:00 | NUR ---
at Station Dr. Sanderson at station discussing plan of care.
[2020-06-13] MEDS ORDERED: LEVO500T21 PO (15:11)
--- NOTE | 2020-06-13 15:34 | NUR ---
Mallorie Received call from Mallorie, spoke with Shamika. Patient positive for VRE in urine.
--- NOTE | 2020-06-13 15:34 | NUR ---
Paged Paged Dr. Sanderson.
--- NOTE | 2020-06-13 15:45 | NUR ---
MD Spoke with Dr. Sanderson, per MD, will change home antibiotic, call back in ten minutes.
[2020-06-13 15:58] VITALS: BP 95/61
[2020-06-13] MEDS ORDERED: LINE1TAB6 PO (15:59)
[2020-06-13] MEDS ORDERED: FLUC200T35 PO (16:09)
[2020-06-13] MEDS ORDERED: FLUCONAZOLE 200MG/100ML 100 ML IV ONE (16:15)
--- NOTE | 2020-06-13 16:18 | NUR ---
assessment Patient is a 80 year old female who is alert and oriented. Patients cognitive abilities are intact. Prior to admission patient lived home with her Connor and functioned with assistance. Per patient she will return home to her prior living arrangements post discharge and Connor will transport her home. Patient informed me she is on Peritoneal dialysis with [facility] in [place]. I will continue to monitor and follow up as appropriate. I informed patient she has a right to speak to a adoption social worker regarding all care. I informed patient she has a right to participate in any and all discharge planning. Patient does not have a POA and advanced directive. I have offered patient information on POA and advanced directives. I informed the patient the advantages and benefits of having an Advanced Directive. Patient verbalized understanding and agreed to discharge plan. Addendum: 06/13/20 at 1621 by Tia ADDISON Amended: Links added.
[2020-06-13 17:00] VITALS: BP 145/70
--- NOTE | 2020-06-13 17:00 | NUR ---
Peritoneal Dialysis Peritoneal dialysis complete. Input: 1,918mL; Output: 2221mL Beginning Weight 64.3, End weight 62.8.
--- NOTE | 2020-06-13 17:30 | NUR ---
Wound Pictures Wound photos obtained for discharge.
--- NOTE | 2020-06-13 18:35 | NUR ---
Discharge Discharge instructions given as ordered. Encourage to follow up with PMD as instructed. All questions and concerns addressed. Patient verbalized understanding. Medication reconciliation form completed and copy given to patient. Home medications held in Pharmacy returned to patient, and needed vaccines given. IV removed with catheter intact, pressure dressing applied, juarez catheter removed. Telemetry unit returned to ICU. Patient taken to vehicle via (personal) wheelchair with all personal belongings, accompanied by staff and family member. During transfer to vehicle patient was assisted to ground. Witness by security Jensen Norma, RN, and patient's . Patient showed no signs of distress, respirations even and unlabored. Patient assisted to vehicle. Patient/ offered to obtain further assessment, refused at this time. Per patient's , patient has history of episodes where she allows herself to fall, per , "she's just been giving up on me" but states he does have help at home. No distress noted at time of departure.
[2020-06-13] MEDS ORDERED: VANCOMYCIN 500 MG in D5W 5% 100 ML IV ONE (20:00)
[2020-06-13] MEDS ORDERED: LINEZOLID 600MG/300ML 300 ML IV SCH (22:00)
== END 2020-06-13 18:35 | disposition home or self-care (01) | DRG 871 ==
LOC: ER 14:38 → TELE 14:39 → TELE-EAST 20:40 → TELE-WESTW 06-08 17:54
PROVIDERS: ADMIT Hospitalist; ATTEND Internal Medicine
PROC: 3E1M39Z Irrigation of Peritoneal Cavity using Dialysate, Percutaneous Approach (ICD-10-PCS; principal; 2020-06-09)
PROC: 4A023N8 Measurement of Cardiac Sampling and Pressure, Bilateral, Percutaneous Approach (ICD-10-PCS; 2020-06-13)
PROC: B2111ZZ Fluoroscopy of Multiple Coronary Arteries using Low Osmolar Contrast (ICD-10-PCS; 2020-06-13)
PROC: B2151ZZ Fluoroscopy of Left Heart using Low Osmolar Contrast (ICD-10-PCS; 2020-06-13)
PROC: 4A033BC Measurement of Arterial Pressure, Coronary, Percutaneous Approach (ICD-10-PCS; 2020-06-13)
PROC: B41C1ZZ Fluoroscopy of Pelvic Arteries using Low Osmolar Contrast (ICD-10-PCS; 2020-06-13)
DX: A41.9 Sepsis, unspecified organism (principal); J18.9 Pneumonia, unspecified organism; N18.6 End stage renal disease; G92 Toxic encephalopathy; L03.115 Cellulitis of right lower limb; L03.116 Cellulitis of left lower limb; E87.1 Hypo-osmolality and hyponatremia; N25.81 Secondary hyperparathyroidism of renal origin; N39.0 Urinary tract infection, site not specified; I12.0 Hypertensive chronic kidney disease with stage 5 chronic kidney disease or end stage renal disease; E83.42 Hypomagnesemia; Z99.2 Dependence on renal dialysis; M1A.9XX0 Chronic gout, unspecified, without tophus (tophi); K44.9 Diaphragmatic hernia without obstruction or gangrene; E87.6 Hypokalemia; E83.51 Hypocalcemia; G89.29 Other chronic pain; M54.9 Dorsalgia, unspecified; D63.1 Anemia in chronic kidney disease; G47.33 Obstructive sleep apnea (adult) (pediatric); I35.0 Nonrheumatic aortic (valve) stenosis; I77.6 Arteritis, unspecified; I73.9 Peripheral vascular disease, unspecified; M15.9 Polyosteoarthritis, unspecified; K59.04 Chronic idiopathic constipation; Z79.899 Other long term (current) drug therapy; Z80.0 Family history of malignant neoplasm of digestive organs; Z80.1 Family history of malignant neoplasm of trachea, bronchus and lung; Z82.0 Family history of epilepsy and other diseases of the nervous system; Z82.49 Family history of ischemic heart disease and other diseases of the circulatory system; Z82.5 Family history of asthma and other chronic lower respiratory diseases; Z83.3 Family history of diabetes mellitus; Z85.038 Personal history of other malignant neoplasm of large intestine; Z85.118 Personal history of other malignant neoplasm of bronchus and lung; Z90.710 Acquired absence of both cervix and uterus; Z88.5 Allergy status to narcotic agent; Z20.828 Contact with and (suspected) exposure to other viral communicable diseases; I95.3 Hypotension of hemodialysis
CPT/HCPCS: 36415; 36600; 70450; 71045; 75710; 80048; 80053; 80202; 81001; 82306; 82728; 82805; 83036; 83540; 83550; 83605; 83615; 83735; 83880; 83970; 84100; 84295; 84484; 85014; 85018; 85025; 85379; 85610; 85730; 86141; 86850; 86900; 86901; 87040; 87086; 87088; 87186; 87493; 93005; 93306; 93460; 96365; 99152; 99153; 99291; C1751; G0378; J0885; J2250; J2543; J3480; J3490; J7060